=== PATIENT | male | born 1975 | race Caucasian/White ===

== ENCOUNTER 2020-09-12 13:39 | Outpatient (REF) | payer OTHER, SELFPAY ==
[2020-09-12 13:59] LABS: COVID-19 Test Negative (Negative)
== END 2020-09-12 13:40 | disposition home or self-care (01) ==
LOC: HO.LAB 13:39
PROVIDERS: Visit Provider Internal Medicine
DX: Z20.828 Contact with and (suspected) exposure to other viral communicable diseases (principal)
CPT/HCPCS: 87635

== ENCOUNTER 2020-10-16 11:20 | Outpatient (REF) | payer OTHER, SELFPAY ==
[2020-10-16 11:45] LABS: COVID-19 Test Negative (Negative)
== END 2020-10-16 11:21 | disposition home or self-care (01) ==
LOC: HO.EMPCOV 11:20
PROVIDERS: Visit Provider Internal Medicine
DX: Z20.828 Contact with and (suspected) exposure to other viral communicable diseases (principal)
CPT/HCPCS: 87635; C9803

== ENCOUNTER → 2021-12-21 13:56 | Outpatient (BNVA) | payer OTHER, SELFPAY | PROVIDERS: Visit Provider Physician Assistant Medical | DX: Z13.89 Encounter for screening for other disorder (principal) | CPT/HCPCS: 99202 ==

== ENCOUNTER → 2021-12-24 13:06 | Outpatient (BNVA) | payer OTHER, SELFPAY | PROVIDERS: Visit Provider Internal Medicine | DX: Z13.89 Encounter for screening for other disorder (principal) | CPT/HCPCS: 71101; 99214 ==

== ENCOUNTER → 2021-12-28 09:03 | Outpatient (BNVA) | payer OTHER, SELFPAY | PROVIDERS: Visit Provider Internal Medicine | DX: Z13.89 Encounter for screening for other disorder (principal) | CPT/HCPCS: 99213 ==

== ENCOUNTER → 2022-01-05 09:18 | Outpatient (BNVA) | payer OTHER, SELFPAY | PROVIDERS: Visit Provider Internal Medicine | DX: Z13.89 Encounter for screening for other disorder (principal) | CPT/HCPCS: 99213 ==

== ENCOUNTER 2024-02-27 08:52 | Outpatient (REF) | payer OTHER, SELFPAY ==
--- NOTE | ~2024-02-27 | US_ITS ---
EXAMINATION: US COMPLETE ABDOMEN WITH LIVER ELASTOGRAPHY CLINICAL INFORMATION: Elevated liver function tests. COMPARISON: None available. TECHNIQUE: Real-time imaging of the abdominal viscera. Noninvasive ultrasound liver fibrosis assessment is performed using Jeff Elast[employer] point quantification shear wave elastography (2D-SWE) with a C5-2 MHz transducer. Multiple elastography samples are obtained. FINDINGS: PANCREAS: Normal. The visualized pancreatic head and body are normal in appearance. The remainder of the pancreas is obscured from visualization by the overlying bowel gas. ABDOMINAL AORTA: The proximal, middle, and distal aortic segments are normal in caliber. INFERIOR VENA CAVA: Visualized portions are normal. LIVER: The liver demonstrates normal contour and generally increased echogenicity. No focal lesion or intrahepatic biliary duct dilatation. The right lobe measures 19.3 cm in length. The left lobe measures 11.8 cm in length. Portal flow is towards the liver (hepatopetal). Shear wave liver elastography median stiffness is 1.75 m/s (reference: normal median stiffness is 1.3 m/s or less). IQR/median stiffness to assess sampling precision is 0.06 (reference: good quality data set is IQR/median stiffness of 0.15 or less). GALLBLADDER: Normal. The gallbladder is physiologically distended without evidence of stones, sludge, polyps, wall thickening or pericholecystic fluid. COMMON BILE DUCT: Normal in caliber measuring 0.4 cm in diameter. RIGHT KIDNEY: Normal. No hydronephrosis. No renal calculi or focal parenchymal lesions. The kidney measures 13.3 cm in maximum dimension. LEFT KIDNEY: There is pelviectasis, without rere hydronephrosis. No renal calculi or focal parenchymal lesions. The kidney measures 13.8 cm in maximum dimension. SPLEEN: No focal finding. The spleen measures 13.1 cm in maximum dimension. FREE FLUID: None. US/US abdomen comp w elastography IMPRESSION: 1. There is hepatosplenomegaly. 2. There is generalized increase in hepatic echotexture, consistent with fatty infiltration or hepatocellular disease. Please correlate clinically. No focal hepatic mass or intrahepatic biliary dilatation is seen. 3. Liver elastography: Measurements are suggestive of compensated advanced chronic liver disease but need further test for confirmation. REFERENCE: Society of Radiologists in Ultrasound Liver Stiffness Thresholds (2020): LIVER STIFFNESS THRESHOLDS: *Liver Stiffness equal or less than 1.3 m/s: High probability of being normal. *Liver Stiffness less than 1.7 m/s: In the absence of other known clinical signs, rules out compensated advanced chronic liver disease. *Liver Stiffness 1.7-2.1 m/s: Suggestive of compensated advanced chronic liver disease but need further test for confirmation. *Liver Stiffness over 2.1 m/s: Rules in compensated advanced chronic liver disease. *Liver Stiffness over 2.4 m/s: Suggestive of clinically significant portal hypertension. QUALITY OF DATA SET: *IQR/Median value equal or less than 0.15 implies a quality data set. *IQR/Median value over 0.15 implies a poor quality data set. SIGNIFICANT CHANGE FROM PRIOR EXAM: Significant change if liver stiffness measurement is 10% or greater from prior exam. OTHER CONSIDERATIONS: The stage of liver fibrosis may be overestimated in the setting of acute hepatitis, liver inflammation, elevated liver function tests, hepatic vascular congestion, obstructive cholestasis, non-fasting state, and infiltrative diseases such as amyloidosis and lymphoma. In some patients with NAFLD, the liver stiffness thresholds for compensated advanced chronic liver disease may be lower. In causes other than viral hepatitis and NAFLD, liver stiffness thresholds are not well established.
== END 2024-02-27 08:53 | disposition home or self-care (01) ==
LOC: HO.US 08:52
PROVIDERS: Visit Provider Internal Medicine
DX: R94.5 Abnormal results of liver function studies (principal)
CPT/HCPCS: 76700; 76981

== ENCOUNTER 2024-05-18 11:37 | Outpatient (REF) | payer OTHER, SELFPAY ==
[2024-05-18 13:42] LABS: Alanine Aminotransferase 41 U/L (0-40); Albumin Level 4.5 g/dL (3.5-5.0); Alkaline Phosphatase 58 U/L (39-117); Aspartate Amino Transferase 23 U/L (5-37); Bilirubin Direct 0.2 mg/dL (0.0-0.5); Bilirubin Total 0.5 mg/dL (0.0-1.0); Iron 117 mcg/dL (45-160); Percent Iron Saturation 40 % (15-50); Total Iron Binding Capacity 292 mcg/dL (228-428); Total Protein 7.6 g/dL (6.5-8.0); Unsaturated Iron Binding 175 ug/dL
[2024-05-18 14:03] LABS: HBsAGNum1 0.27 S/CO (0.00-0.99); Hepatitis B Core Antibody Nonreactive (Nonreactive); Hepatitis B Surface Antigen Negative (Negative); ~HepC Num1 0.12 S/CO (0.00-0.79); ~Hepatitis B Surface Antibody REACTIVE (Nonreactive); ~Hepatitis C Antibody Nonreactive (Nonreactive)
[2024-05-18 14:05] LABS: Ferritin 254 ng/mL (20-250)
[2024-05-26 17:53] LABS: FIB-ALT 37 U/L (9-46); FIB-Alpha-2-Macroglobulin 147 mg/dL (106-279); FIB-Apolipoprotein A1 129 mg/dL (94-176); FIB-GGT 15 U/L (3-95); FIB-Haptoglobin 157 mg/dL (43-212); FIB-Total Bilirubin 0.5 mg/dL (0.2-1.2); Liver Fibrosis Stage F0; Nec Inflam Act Grade A0; Nec Inflam Act Score 0.15
== END 2024-05-18 11:38 | disposition home or self-care (01) ==
LOC: HO.HMGCLDS 11:37
PROVIDERS: Visit Provider Internal Medicine
DX: R94.5 Abnormal results of liver function studies (principal)
CPT/HCPCS: 36415; 80076; 81596; 82728; 83540; 86704; 86706; 86803; 87340

== ENCOUNTER 2024-06-04 07:25 | Day surgery (SDC) | payer OTHER, SELFPAY ==
[2024-05-31 14:28] VITALS: BMI 40.3
--- NOTE | 2024-06-04 07:51 | HO.ANESPROP2 ---
[facility] Active Problems Active Problems: All Active Problems Contusion of left chest wall (Acute ~12/21/21) Past Medical History Medical History Seasonal allergies Anxiety Vitamin D deficiency Hyperlipidemia Diabetes HTN (hypertension) Surgical History Surgical History History of vasectomy H/O wisdom tooth extraction History of Problems with Anesthesia: No Social History Social History Patient Tobacco Use Status: Never used Tobacco Meds Allergies Allergy/AdvReac Type Severity Reaction Status Date / Time lisinopril Allergy Cough Verified 06/04/24 08:29 Active Medications: Current Medications Sodium Biphosphate/Sodium Phosphate (Sodium Phosphate,Otero-Dibasic 133 Ml Enema) 133 ml [place] ONCE PRN PRN Reason: Poor Colonoscopy Prep Results Home Medications ?Medication ?Instructions ?Recorded ?Confirmed ?Last Taken ?Type atenolol 05/31/24 05/31/24 Unknown History cetirizine 05/31/24 Unknown History cholecalciferol (vitamin D3) 05/31/24 Unknown History fluticasone propionate 05/31/24 Unknown History losartan-hydrochlorothiazide 05/31/24 Unknown History rosuvastatin 05/31/24 Unknown History semaglutide 0.25 mg or 0.5 mg (2 0.25 mg subcut QWEEK 05/31/24 06/04/24 05/26/24 History mg/3 mL) subcutaneous pen injector sertraline 05/31/24 Unknown History Exam Height,Weight and Vital Signs: Height 6 ft Weight 134.717 kg Airway Mallampati Class: III TM Dist: >3cm Neck ROM: Full Loose/Missing/Broken Teeth: No Heart: RRR Lungs: CTA Assessment and Plan Assessment Anesthesia Assessment: Anesthesia Plan Discussed and Chart Reviewed Final Anesthetic Review History of Problems with Anesthesia: No NPO: Yes ASA Class: III Final Preanesthetic Review: Meds/Allgs Chart Reviewed, Consent Obtained/Reviewed and Anes Risks/Benef Reviewed Patient Risk: Intermediate Procedure Risk: Low Anesthetic Plan Anesthetic Plan: MAC: Disposition: Standard PACU
[2024-06-04 07:55] VITALS: BMI 40.0
[2024-06-04 08:01] VITALS: BP 146/87; PULSE 77; RESP 16; TEMP 36.6; O2SAT 96
[2024-06-04 08:08] LABS: Glucose, Whole Blood 104 mg/dL (60-115)
[2024-06-04] MEDS: Lactated Ringers 1,000 ML 50 ML IVCONT (08:26)
--- NOTE | 2024-06-04 08:33 | PC.NURSE ---
Dr. Lennon at bedside. 24hr update documented on paper.
[2024-06-04 09:25] VITALS: BP 120/65; PULSE 91; RESP 18; TEMP 36.2; O2SAT 99
--- NOTE | 2024-06-04 09:27 | P.BOP_ITS ---
Brief Operative Note Date of Service: 06/04/24 Pre-op diagnosis: Screening Post-op diagnosis: other (Polyps) Procedure: Colonoscopy to the cecum and TI with bx/removal of polyps Surgeon: Lamberto Lennon MD Anesthesia: MAC Was an Applications Administrator used for this Procedure?: No Estimated blood loss (mL): 2.0 Pathology: other (A. Cecal polyp B. Ascending colon polyp) Condition: stable Disposition: PACU
[2024-06-04 09:39] VITALS: BP 115/64; PULSE 87; RESP 18; TEMP 36.2; O2SAT 94
--- NOTE | 2024-06-04 10:18 | OP_ITS ---
DATE OF SERVICE: 06/04/2024 SURGEON: Lamberto Lennon MD INDICATIONS: The patient presents for evaluation of colorectal cancer screening and family history of colon cancer. Full consent obtained from him for this, including risks of bleeding and perforation. PREOPERATIVE DIAGNOSIS: POSTOPERATIVE DIAGNOSIS: PROCEDURE PERFORMED: Colonoscopy to cecum and terminal ileum with biopsy and removal of polyps. ESTIMATED BLOOD LOSS: COMPLICATIONS: ANESTHESIA: Medication used, monitored anesthesia care. ASSISTANTS: SPECIMENS: PREOPERATIVE DIAGNOSES: Colorectal cancer screening and family history of colon. POSTOPERATIVE DIAGNOSES: Colorectal cancer screening and family history of colon, small colon polyps, sigmoid diverticulosis, and internal hemorrhoids. DESCRIPTION OF PROCEDURE: The patient was placed in the left lateral decubitus position. The digital rectal exam revealed no abnormalities. The Olympus video pediatric colonoscope was entered into the rectum and advanced easily to the cecum. Once in the cecum, I did identify cecal pouch with appendiceal orifice and a normal-appearing ileocecal valve. The terminal ileum was cannulated and appeared normal. The scope was withdrawn back in the colon. The entire cecum and ileocecal valve appeared normal other than an approximately 3 or 4 mm polyp, which was biopsied and completely removed with cold biopsy forceps. The scope was slowly withdrawn assessing all mucosal surfaces carefully. Preparation was excellent. In the ascending colon, there was a flat approximately 3 or 4 mm polyp, which was biopsied and completely removed with cold biopsy forceps. In the transverse colon, there was a small lipoma, which was very yellowish and soft, consistent with a lipoma. The overlying mucosa was normal and biopsies were not obtained. I did not visualize any other polyps, colitis, nor angiodysplasia. There was an occasional diverticula noted in the sigmoid colon. In the rectum, scope was retroflexed visualizing internal hemorrhoids, but no other pathology. The rectal mucosa appeared normal. Scope was straightened and withdrawn the patient. He tolerated the procedure well and was returned to the recovery area in stable condition. IMPRESSION: 1. Small colon polyps. 2. Occasional sigmoid diverticulosis. 3. Internal hemorrhoids. PLAN: The results of biopsies will be checked. Even if these are not tubular adenoma, I would recommend a followup colonoscopy in 5 years for further screening purposes given his family history of colon cancer in his mother in her 60s. He was advised to resume his normal diabetic regimen. Of note in regard to some elevated LFTs, a recent liver profile was completely normal except for an ALT of 41 with normal being under 40. His liver fibrosis score was F0. His weight loss and better diabetic control has helped his LFTs improved. He did have an abdominal ultrasound that described some fatty liver, but no other abnormalities. There was no ascites. He has been advised to continue his careful diet and weight loss program. At this point, he will see me in 5 years for his followup colonoscopy, but will otherwise see me on a p.r.n. basis otherwise. This has been discussed with his . MD RUCHI Kimball/BENJAMÍN / [id number]
== END 2024-06-04 10:09 | disposition home or self-care (01) ==
PROVIDERS: Visit Provider Internal Medicine
PROC: 0DJD8ZZ Inspection of Lower Intestinal Tract, Via Natural or Artificial Opening Endoscopic (ICD-10-PCS; CPT 45378; principal; 2024-06-04 08:30)
DX: Z12.11 Encounter for screening for malignant neoplasm of colon (principal); Z80.0 Family history of malignant neoplasm of digestive organs; D12.2 Benign neoplasm of ascending colon; K63.5 Polyp of colon; K57.30 Diverticulosis of large intestine without perforation or abscess without bleeding; K64.8 Other hemorrhoids; D17.5 Benign lipomatous neoplasm of intra-abdominal organs; R94.5 Abnormal results of liver function studies; I10 Essential (primary) hypertension; E78.5 Hyperlipidemia, unspecified; E11.9 Type 2 diabetes mellitus without complications; E55.9 Vitamin D deficiency, unspecified; F41.9 Anxiety disorder, unspecified; J30.2 Other seasonal allergic rhinitis; Z79.85 Long-term (current) use of injectable non-insulin antidiabetic drugs; Z79.84 Long term (current) use of oral hypoglycemic drugs; Z79.899 Other long term (current) drug therapy; Z98.52 Vasectomy status; Z88.8 Allergy status to other drugs, medicaments and biological substances
CPT/HCPCS: 45380; 82947; 88305; J2250; J2405; J2704